=== PATIENT | male | born 1980 | race Caucasian/White ===

== ENCOUNTER 2018-06-22 10:57 | Emergency (ER) | payer OTHER ==
[2018-06-22 11:08] VITALS: BP 120/86
--- NOTE | 2018-06-22 11:09 | ER Document Report ---
HPI - HPI Patient complains to provider of: Twisted right ankle Onset: Just prior to arrival Pain Level: 3 Context: 38-year-old fell off a ladder twisting his right ankle at work today. Previous ankle surgery with screws in his tibia. He was wearing loose boots at the time. Exacerbated by: Movement Relieved by: Denies - ROS ROS below otherwise negative: Yes Systems Reviewed and Negative: Yes All other systems reviewed and negative Past Medical History - General Information source: Patient - Social History Smoking Status: Current Every Day Smoker Frequency of alcohol use: None Drug Abuse: None Lives with: Family Family History: Reviewed & Not Pertinent - Medical History Medical History: Negative Surgical Hx: Negative Vertical Provider Document - CONSTITUTIONAL Agree With Documented VS: Yes Exam Limitations: No Limitations General Appearance: No Apparent Distress - INFECTION CONTROL TRAVEL OUTSIDE OF THE [place] IN LAST 30 DAYS: No - MUSCULOSKELETAL/EXTREMETIES Musculoskeletal/Extremeties: MAEW, Tender - inferior to lateral right malleous, non tender 5th mt, 2+ pulse, non tender media malleolus - NEURO Level of Consciousness: Alert Motor/Sensory: No Motor Deficit, No Sensory Deficit - DERM Integumentary: No Rash Course - Re-evaluation Re-evalutation: 06/22/18 11:49 X-rays negative per rad - Vital Signs Vital signs: Temp Pulse Resp BP Pulse Ox 99.0 F 67 18 120/86 H 97 06/22/18 11:07 06/22/18 11:07 06/22/18 11:07 06/22/18 11:07 06/22/18 11:07 Procedures - Immobilization Right Ankle Time completed: 11:51 Pre-Proc Neuro Vasc Exam: Normal Immobilizer type: Ankle stirrup Performed by: PCT Post-Proc Neuro Vasc Exam: Normal Alignment checked and good: Yes Discharge - Discharge Clinical Impression: Right ankle sprain Condition: Good Disposition: HOME, SELF-CARE Instructions: Sprained Ankle ([facility]), Ibuprofen (General) ([facility]), Temporary Splint ([facility]), Ankle Stirrup Splint ([facility]) Additional Instructions: Ankle stirrup splint for support for a week Return to the emergency room any concerns See orthopedics if the pain persists Motrin 800 mg up to 3 times a day for inflammation and pain Forms: Return to Work Referrals: TRI PAUL MD [ACTIVE STAFF] - Follow up as needed
[2018-06-22] MEDS ORDERED: IBUPROFEN 800 MG TABLET PO ONE (11:14)
--- NOTE | 2018-06-22 11:43 | RADIOLOGY REPORT (SQ) ---
EXAM DESCRIPTION: ANKLE RIGHT COMPLETE COMPLETED DATE/TIME: 06/22/2018 11:33 am REASON FOR STUDY: inversion COMPARISON: None. NUMBER OF VIEWS: Three views. TECHNIQUE: AP, lateral, and oblique radiographic images acquired of the right ankle. LIMITATIONS: None. FINDINGS: MINERALIZATION: Normal. BONES: No acute fracture or dislocation. No worrisome bone lesions. Surgical hardware medial malleo matt. JOINTS: No effusions. SOFT TISSUES: No soft tissue swelling. No foreign body. OTHER: No other significant finding. IMPRESSION: No acute fracture. TECHNICAL DOCUMENTATION: JOB ID: [id number] [employer]- All Rights Reserved Reading location - IP/workstation name: [email or web address]
== END 2018-06-22 12:08 | disposition home or self-care (01) ==
LOC: ER 10:57
DX: S93.401A Sprain of unspecified ligament of right ankle, initial encounter (principal); W11.XXXA Fall on and from ladder, initial encounter; Y99.0 Civilian activity done for income or pay; F17.200 Nicotine dependence, unspecified, uncomplicated
CPT/HCPCS: 99283; 73610; L1902